=== PATIENT | male | born 2000 | race Caucasian/White ===

== ENCOUNTER 2022-02-22 21:05 | Emergency (ER) | payer OTHER, SELFPAY ==
[2022-02-22 21:22] VITALS: BP 141/97; PULSE 98; RESP 16; TEMP 37.2; O2SAT 100; BMI 19.1
--- NOTE | 2022-02-22 21:55 | ED_ITS ---
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 Patient states he has had increased anxiety, becoming less sociable over the last few months, says he has been seen for IBS last summer, did get bullied in middle school and high school he feels this has been contributing. Patient denies any suicidal homicidal ideations, he self medicates with THC. Patient did this prior to coming to the emergency department, he denies any alcohol or any other illicit drug use. He is also concerned about HIV, he has 1 sexual partner with his girlfriend from school she has an IUD, patient denies any other contact. Denies any fevers, chills myalgias arthralgias. Denies any chest pain or shortness of breath, denies any diarrhea or abdominal pain. There is some depression in the family with his sister, mother has anxiety. He has not had any auditory visual hallucinations. He says he has friends at school and is doing well. Not currently on any medications, he has no therapist. Due to these multiple concerns he presents emergency department. <Jeff Pratt MD - Last Filed: 03/01/22 13:55> Related Data Home medications: Home Medications Medication Instructions Recorded Confirmed No Known Home Medications 02/22/22 02/22/22 <Jeff Pratt MD - Last Filed: 03/01/22 13:55> Allergies/adverse reactions: Allergies Allergy/AdvReac Type Severity Reaction Status Date / Time azithromycin Allergy Mild arm swollen Verified 02/22/22 21:32 <Jeff Pratt MD - Last Filed: 03/01/22 13:55> Review of Systems Status of ROS: Reports: 10 or more systems reviewed and unremarkable except as noted in History and below <Jeff Pratt MD - Last Filed: 03/01/22 13:55> [facility] Social History: Social History Smoking Status: Never smoker Do you use any of these nicotine containing products: None Second hand tobacco smoke exposure: No How often do you have a drink containing alcohol: never AUDIT-C Alcohol total score: 0 Non-prescribed substance use: marijuana (any form) <Jeff Pratt MD - Last Filed: 03/01/22 13:55> Exam Narrative: Exam Narrative: General: No obvious distress sitting comfortably, nontoxic in appearance HEENT: Tympanic membranes within normal limits bilateral oropharynx is clear and moist, pupils equal round reactive to light, extraocular muscles intact Neck: Supple full range of motion : Lungs clear to auscultation bilaterally Heart: Normal sinus rhythm S1-S2 Abdomen: Soft nontender, bowel sounds present Muscle skeletal: +5 strength upper lower extremities Neuro: Alert awake and oriented x3 Psych: No psychosis, mood and affect normal <Jeff Pratt MD - Last Filed: 03/01/22 13:55> Const: Vital Signs, click to edit/add: Vital Signs - 24 hr 02/22/22 21:22 Temperature 98.9 F Pulse Rate [Left P ulse Oximeter] 98 Respiratory Rate 16 Blood Pressure [Ri ght Upper Arm] 141/97 H Pulse Oximetry 100 Oxygen Delivery Me thod Room Air <Jeff Pratt MD - Last Filed: 03/01/22 13:55> Vital Signs, click to edit/add: Vital Signs - 24 hr 02/22/22 21:22 Temperature 98.9 F Pulse Rate [Left P ulse Oximeter] 98 Respiratory Rate 16 Blood Pressure [Ri ght Upper Arm] 141/97 H Pulse Oximetry 100 Oxygen Delivery Me thod Room Air <Nano Garner MD - Last Filed: 02/23/22 01:05> Course Course Hospital Course: 10:00 PM: AIDET performed.Vitals are stable. Workup will include behavioral health labs including CBC, serum EtOH, urine drug screen, urinalysis, CMP, TSH and telehealth consult. Patient is not currently suicidal or psychotic. Differential diagnosis include mental illness in the form of schizophrenia, bipolar disorder, metabolic derangements such as hypoglycemia or hypo or hypernatremia, FEATHER MIXER disorder such as infections, drug use illicit or prescription, thyrotoxicosis, hepatic failure as well as all etiologies. <Jeff Pratt MD - Last Filed: 03/01/22 13:55> Reevaluation(s) Reevaluation #1: Patient and mother were updated on his lab results, urinalysis and urine drug screen were within normal limits, CBC showed no abnormalities, TSH normal, metabolic panel within normal limits. Serum ETOH level negative, HIV 1/2 negative, he is to meet with [facility] at this time. Likely discharge home with outpatient follow up. <Jeff Pratt MD - Last Filed: 03/01/22 13:55> Time: 23:32 <Jeff Pratt MD - Last Filed: 03/01/22 13:55> Vital Signs Vital signs: Initial Vital Signs Temperature 98.9 F 02/22/22 21: Temperature Source Temporal Artery Scan 02/22/22 21: Pulse Rate 98 02/22/22 21:22 Respiratory Rate 16 02/22/22 21:22 Blood Pressure 141/97 H 02/22/22 21:22 Blood Pressure Mean 111 02/22/22 21:22 Blood Pressure Position Supine 02/22/22 21:22 Pulse Oximetry 100 02/22/22 21:22 Oxygen Delivery Method 02/22/22 21:22 Vital Signs Temperature 98.9 F 02/22/22 21:22 Pulse Rate 98 02/22/22 21:22 Respiratory Rate 16 02/22/22 21:22 Blood Pressure 141/97 H 02/22/22 21:22 Pulse Oximetry 100 02/22/22 21:22 Oxygen Delivery Method 02/22/22 21:22 Temperature 98.9 F 02/22/22 21:22 Pulse Rate 98 02/22/22 21:22 Respiratory Rate 16 02/22/22 21:22 Blood Pressure 141/97 H 02/22/22 21:22 Pulse Oximetry 100 02/22/22 21:22 Oxygen Delivery Method 02/22/22 21:22 <Jeff Pratt MD - Last Filed: 03/01/22 13:55> Initial Vital Signs Temperature 98.9 F 02/22/22 21:22 Temperature Source Temporal Artery Scan 02/22/22 21:22 Pulse Rate 98 02/22/22 21:22 Respiratory Rate 16 02/22/22 21:22 Blood Pressure 141/97 H 02/22/22 21:22 Blood Pressure Mean 111 02/22/22 21:22 Blood Pressure Position Supine 02/22/22 21:22 Pulse Oximetry 100 02/22/22 21:22 Oxygen Delivery Method 02/22/22 21:22 Vital Signs Temperature 98.9 F 02/22/22 21:22 Pulse Rate 98 02/22/22 21:22 Respiratory Rate 16 02/22/22 21:22 Blood Pressure 141/97 H 02/22/22 21:22 Pulse Oximetry 100 02/22/22 21:22 Oxygen Delivery Method 02/22/22 21:22 Temperature 98.9 F 02/22/22 21:22 Pulse Rate 98 02/22/22 21:22 Respiratory Rate 16 02/22/22 21:22 Blood Pressure 141/97 H 02/22/22 21:22 Pulse Oximetry 100 02/22/22 21:22 Oxygen Delivery Method 02/22/22 21:22 <Nano Garner MD - Last Filed: 02/23/22 01:05> Medical Decision Making MDM Narrative Medical decision making narrative: I have reviewed the dec assessment. I reviewed labs and discussed the findings with the patient. Discharge is recommended, with planned outpatient follow-up. Patient attends [employer] but also happens to live locally. They have a family doctor who taken follow up with. His father is present today. All questions answered. No additional concerns at this time. <Nano Garner MD - Last Filed: 02/23/22 01:05> Lab Data Labs: Lab Results 02/22/22 02/22/22 02/22/22 Range/Units 22:13 22:13 22:20 WBC 5.32 (4.50-11.00) K/uL RBC 4.89 (4.30-5.90) m/uL Hgb 15.3 (13.5-17.5) gm/dL Hct 42.9 (37.0-53.0) % MCV 88 (80-100) fL MCH 31 (26-34) pg MCHC 36 (32-36) gm/dL RDW Coeff of Obed 11.4 L (11.5-15.5) % Plt Count 220 (140-440) K/uL Neut % (Auto) 61.5 (42.0-72.0) % Lymph % (Auto) 28.6 (20-44) % [place] % (Auto) 8.3 (0.0-11.0) % Eos % (Auto) 0.4 (0.0-7.0) % Baso % (Auto) 0.6 (0.0-3.0) % Neut # (Auto) 3.28 (1.7-7.0) K/uL Lymph # (Auto) 1.52 (0.90-2.90) K/uL [place] # (Auto) 0.40 (0.00-0.90) K/UL Eos # (Auto) 0.02 (0.00-0.50) K/uL Baso # (Auto) 0.03 (0.00-0.30) K/uL Abs Immat Gran (auto) 0.03 (0.00-0.30) K/uL Sodium (135-149) mmol/L Potassium (3.6-5.1) mmol/L Chloride (96-114) mmol/L Carbon Dioxide (20-32) mmol/L BUN (5-24) mg/dL Creatinine (0.5-1.5) mg/dL Estimated Creat Clear Estimated GFR ml/min Glucose (60-115) mg/dL Calcium (8.4-10.6) mg/dL Total Bilirubin (0.1-1.5) mg/dL AST (12-35) U/L ALT (4-50) U/L Alkaline Phosphatase (40-150) U/L Total Protein (6.0-8.3) g/dL Albumin (3.3-5.0) g/dL TSH (0.270-4.20) uIU/mL Urine Color Yellow (Yellow) Urine Appearance Clear (Clear) Urine pH 7.0 (5.0-8.5) Ur Specific [place] 1.010 (1.000-1.030) Urine Protein Negative (Negative) Urine Glucose (UA) Negative (Negative) Urine Ketones Negative (Negative) Urine Blood Negative (Negative) Urine Nitrite Negative (Negative) Urine Bilirubin Negative (Negative) Urine Urobilinogen 0.2 (0.2-1.0) Ur Leukocyte Esterase Negative (Negative) Urine Opiates Screen Negative (Negative) Ur Oxycodone Screen Negative (Negative) Urine Methadone Screen Negative (Negative) Ur Propoxyphene Screen Negative (Negative) Ur Barbiturates Screen Negative (Negative) U Tricyclic Antidepress Negative (Negative) Ur Phencyclidine Scrn Negative (Negative) Ur Amphetamines Screen Negative (Negative) U Methamphetamines Scrn Negative (Negative) U Benzodiazepines Scrn Negative (Negative) Urine Cocaine Screen Negative (Negative) U Marijuana (THC) Screen Negative (Negative) Ur Drug Screen Comment See Note Ethyl Alcohol (0.01-0.03) % HIV 1&2 Ab/P24 Ag 4thGn (Negative) 02/22/22 02/22/22 02/22/22 Range/Units 22:20 22:20 22:20 WBC (4.50-11.00) K/uL RBC (4.30-5.90) m/uL Hgb (13.5-17.5) gm/dL Hct (37.0-53.0) % MCV (80-100) fL MCH (26-34) pg MCHC (32-36) gm/dL RDW Coeff of Obed (11.5-15.5) % Plt Count (140-440) K/uL Neut % (Auto) (42.0-72.0) % Lymph % (Auto) (20-44) % Mel[place] % (Auto) (0.0-11.0) % Eos % (Auto) (0.0-7.0) % Baso % (Auto) (0.0-3.0) % Neut # (Auto) (1.7-7.0) K/uL Lymph # (Auto) (0.90-2.90) K/uL [place] # (Auto) (0.00-0.90) K/UL Eos # (Auto) (0.00-0.50) K/uL Baso # (Auto) (0.00-0.30) K/uL Abs Immat Gran (auto) (0.00-0.30) K/uL Sodium 139 (135-149) mmol/L Potassium 3.4 L (3.6-5.1) mmol/L Chloride 100 (96-114) mmol/L Carbon Dioxide 24 (20-32) mmol/L BUN 14 (5-24) mg/dL Creatinine 0.8 (0.5-1.5) mg/dL Estimated Creat Clear 108.67 Estimated GFR 130 ml/min Glucose 143 H (60-115) mg/dL Calcium 10.1 (8.4-10.6) mg/dL Total Bilirubin 2.0 H (0.1-1.5) mg/dL AST 29 (12-35) U/L ALT 14 (4-50) U/L Alkaline Phosphatase 86 (40-150) U/L Total Protein 9.1 H (6.0-8.3) g/dL Albumin 5.6 H (3.3-5.0) g/dL TSH 2.550 (0.270-4.20) uIU/mL Urine Color (Yellow) Urine Appearance (Clear) Urine pH (5.0-8.5) Ur Specific [place] (1.000-1.030) Urine Protein (Negative) Urine Glucose (UA) (Negative) Urine Ketones (Negative) Urine Blood (Negative) Urine Nitrite (Negative) Urine Bilirubin (Negative) Urine Urobilinogen (0.2-1.0) Ur Leukocyte Esterase (Negative) Urine Opiates Screen (Negative) Ur Oxycodone Screen (Negative) Urine Methadone Screen (Negative) Ur Propoxyphene Screen (Negative) Ur Barbiturates Screen (Negative) U Tricyclic Antidepress (Negative) Ur Phencyclidine Scrn (Negative) Ur Amphetamines Screen (Negative) U Methamphetamines Scrn (Negative) U Benzodiazepines Scrn (Negative) Urine Cocaine Screen (Negative) U Marijuana (THC) Screen (Negative) Ur Drug Screen Comment Ethyl Alcohol < 0.01 L (0.01-0.03) % HIV 1&2 Ab/P24 Ag 4thGn (Negative) 02/22/22 Range/Units 22:20 WBC (4.50-11.00) K/uL RBC (4.30-5.90) m/uL Hgb (13.5-17.5) gm/dL Hct (37.0-53.0) % MCV (80-100) fL MCH (26-34) pg MCHC (32-36) gm/dL RDW Coeff of Obed (11.5-15.5) % Plt Count (140-440) K/uL Neut % (Auto) (42.0-72.0) % Lymph % (Auto) (20-44) % Mel[place] % (Auto) (0.0-11.0) % Eos % (Auto) (0.0-7.0) % Baso % (Auto) (0.0-3.0) % Neut # (Auto) (1.7-7.0) K/uL Lymph # (Auto) (0.90-2.90) K/uL [place] # (Auto) (0.00-0.90) K/UL Eos # (Auto) (0.00-0.50) K/uL Baso # (Auto) (0.00-0.30) K/uL Abs Immat Gran (auto) (0.00-0.30) K/uL Sodium (135-149) mmol/L Potassium (3.6-5.1) mmol/L Chloride (96-114) mmol/L Carbon Dioxide (20-32) mmol/L BUN (5-24) mg/dL Creatinine (0.5-1.5) mg/dL Estimated Creat Clear Estimated GFR ml/min Glucose (60-115) mg/dL Calcium (8.4-10.6) mg/dL Total Bilirubin (0.1-1.5) mg/dL AST (12-35) U/L ALT (4-50) U/L Alkaline Phosphatase (40-150) U/L Total Protein (6.0-8.3) g/dL Albumin (3.3-5.0) g/dL TSH (0.270-4.20) uIU/mL Urine Color (Yellow) Urine Appearance (Clear) Urine pH (5.0-8.5) Ur Specific [place] (1.000-1.030) Urine Protein (Negative) Urine Glucose (UA) (Negative) Urine Ketones (Negative) Urine Blood (Negative) Urine Nitrite (Negative) Urine Bilirubin (Negative) Urine Urobilinogen (0.2-1.0) Ur Leukocyte Esterase (Negative) Urine Opiates Screen (Negative) Ur Oxycodone Screen (Negative) Urine Methadone Screen (Negative) Ur Propoxyphene Screen (Negative) Ur Barbiturates Screen (Negative) U Tricyclic Antidepress (Negative) Ur Phencyclidine Scrn (Negative) Ur Amphetamines Screen (Negative) U Methamphetamines Scrn (Negative) U Benzodiazepines Scrn (Negative) Urine Cocaine Screen (Negative) U Marijuana (THC) Screen (Negative) Ur Drug Screen Comment Ethyl Alcohol (0.01-0.03) % HIV 1&2 Ab/P24 Ag 4thGn Negative (Negative) <Jeff Pratt MD - Last Filed: 03/01/22 13:55> Lab Results 02/22/22 02/22/22 02/22/22 Range/Units 22:13 22:13 22:20 WBC 5.32 (4.50-11.00) K/uL RBC 4.89 (4.30-5.90) m/uL Hgb 15.3 (13.5-17.5) gm/dL Hct 42.9 (37.0-53.0) % MCV 88 (80-100) fL MCH 31 (26-34) pg MCHC 36 (32-36) gm/dL RDW Coeff of Obed 11.4 L (11.5-15.5) % Plt Count 220 (140-440) K/uL Neut % (Auto) 61.5 (42.0-72.0) % Lymph % (Auto) 28.6 (20-44) % [place] % (Auto) 8.3 (0.0-11.0) % Eos % (Auto) 0.4 (0.0-7.0) % Baso % (Auto) 0.6 (0.0-3.0) % Neut # (Auto) 3.28 (1.7-7.0) K/uL Lymph # (Auto) 1.52 (0.90-2.90) K/uL [place] # (Auto) 0.40 (0.00-0.90) K/UL Eos # (Auto) 0.02 (0.00-0.50) K/uL Baso # (Auto) 0.03 (0.00-0.30) K/uL Abs Immat Gran (auto) 0.03 (0.00-0.30) K/uL Sodium (135-149) mmol/L Potassium (3.6-5.1) mmol/L Chloride (96-114) mmol/L Carbon Dioxide (20-32) mmol/L BUN (5-24) mg/dL Creatinine (0.5-1.5) mg/dL Estimated Creat Clear Estimated GFR ml/min Glucose (60-115) mg/dL Calcium (8.4-10.6) mg/dL Total Bilirubin (0.1-1.5) mg/dL AST (12-35) U/L ALT (4-50) U/L Alkaline Phosphatase (40-150) U/L Total Protein (6.0-8.3) g/dL Albumin (3.3-5.0) g/dL TSH (0.270-4.20) uIU/mL Urine Color Yellow (Yellow) Urine Appearance Clear (Clear) Urine pH 7.0 (5.0-8.5) Ur Specific [place] 1.010 (1.000-1.030) Urine Protein Negative (Negative) Urine Glucose (UA) Negative (Negative) Urine Ketones Negative (Negative) Urine Blood Negative (Negative) Urine Nitrite Negative (Negative) Urine Bilirubin Negative (Negative) Urine Urobilinogen 0.2 (0.2-1.0) Ur Leukocyte Esterase Negative (Negative) Urine Opiates Screen Negative (Negative) Ur Oxycodone Screen Negative (Negative) Urine Methadone Screen Negative (Negative) Ur Propoxyphene Screen Negative (Negative) Ur Barbiturates Screen Negative (Negative) U Tricyclic Antidepress Negative (Negative) Ur Phencyclidine Scrn Negative (Negative) Ur Amphetamines Screen Negative (Negative) U Methamphetamines Scrn Negative (Negative) U Benzodiazepines Scrn Negative (Negative) Urine Cocaine Screen Negative (Negative) U Marijuana (THC) Screen Negative (Negative) Ur Drug Screen Comment See Note Ethyl Alcohol (0.01-0.03) % HIV 1&2 Ab/P24 Ag 4thGn (Negative) 02/22/22 02/22/22 02/22/22 Range/Units 22:20 22:20 22:20 WBC (4.50-11.00) K/uL RBC (4.30-5.90) m/uL Hgb (13.5-17.5) gm/dL Hct (37.0-53.0) % MCV (80-100) fL MCH (26-34) pg MCHC (32-36) gm/dL RDW Coeff of Obed (11.5-15.5) % Plt Count (140-440) K/uL Neut % (Auto) (42.0-72.0) % Lymph % (Auto) (20-44) % [place] % (Auto) (0.0-11.0) % Eos % (Auto) (0.0-7.0) % Baso % (Auto) (0.0-3.0) % Neut # (Auto) (1.7-7.0) K/uL Lymph # (Auto) (0.90-2.90) K/uL [place] # (Auto) (0.00-0.90) K/UL Eos # (Auto) (0.00-0.50) K/uL Baso # (Auto) (0.00-0.30) K/uL Abs Immat Gran (auto) (0.00-0.30) K/uL Sodium 139 (135-149) mmol/L Potassium 3.4 L (3.6-5.1) mmol/L Chloride 100 (96-114) mmol/L Carbon Dioxide 24 (20-32) mmol/L BUN 14 (5-24) mg/dL Creatinine 0.8 (0.5-1.5) mg/dL Estimated Creat Clear 108.67 Estimated GFR 130 ml/min Glucose 143 H (60-115) mg/dL Calcium 10.1 (8.4-10.6) mg/dL Total Bilirubin 2.0 H (0.1-1.5) mg/dL AST 29 (12-35) U/L ALT 14 (4-50) U/L Alkaline Phosphatase 86 (40-150) U/L Total Protein 9.1 H (6.0-8.3) g/dL Albumin 5.6 H (3.3-5.0) g/dL TSH 2.550 (0.270-4.20) uIU/mL Urine Color (Yellow) Urine Appearance (Clear) Urine pH (5.0-8.5) Ur Specific [place] (1.000-1.030) Urine Protein (Negative) Urine Glucose (UA) (Negative) Urine Ketones (Negative) Urine Blood (Negative) Urine Nitrite (Negative) Urine Bilirubin (Negative) Urine Urobilinogen (0.2-1.0) Ur Leukocyte Esterase (Negative) Urine Opiates Screen (Negative) Ur Oxycodone Screen (Negative) Urine Methadone Screen (Negative) Ur Propoxyphene Screen (Negative) Ur Barbiturates Screen (Negative) U Tricyclic Antidepress (Negative) Ur Phencyclidine Scrn (Negative) Ur Amphetamines Screen (Negative) U Methamphetamines Scrn (Negative) U Benzodiazepines Scrn (Negative) Urine Cocaine Screen (Negative) U Marijuana (THC) Screen (Negative) Ur Drug Screen Comment Ethyl Alcohol < 0.01 L (0.01-0.03) % HIV 1&2 Ab/P24 Ag 4thGn (Negative) 02/22/22 Range/Units 22:20 WBC (4.50-11.00) K/uL RBC (4.30-5.90) m/uL Hgb (13.5-17.5) gm/dL Hct (37.0-53.0) % MCV (80-100) fL MCH (26-34) pg MCHC (32-36) gm/dL RDW Coeff of Obed (11.5-15.5) % Plt Count (140-440) K/uL Neut % (Auto) (42.0-72.0) % Lymph % (Auto) (20-44) % [place] % (Auto) (0.0-11.0) % Eos % (Auto) (0.0-7.0) % Baso % (Auto) (0.0-3.0) % Neut # (Auto) (1.7-7.0) K/uL Lymph # (Auto) (0.90-2.90) K/uL [place] # (Auto) (0.00-0.90) K/UL Eos # (Auto) (0.00-0.50) K/uL Baso # (Auto) (0.00-0.30) K/uL Abs Immat Gran (auto) (0.00-0.30) K/uL Sodium (135-149) mmol/L Potassium (3.6-5.1) mmol/L Chloride (96-114) mmol/L Carbon Dioxide (20-32) mmol/L BUN (5-24) mg/dL Creatinine (0.5-1.5) mg/dL Estimated Creat Clear Estimated GFR ml/min Glucose (60-115) mg/dL Calcium (8.4-10.6) mg/dL Total Bilirubin (0.1-1.5) mg/dL AST (12-35) U/L ALT (4-50) U/L Alkaline Phosphatase (40-150) U/L Total Protein (6.0-8.3) g/dL Albumin (3.3-5.0) g/dL TSH (0.270-4.20) uIU/mL Urine Color (Yellow) Urine Appearance (Clear) Urine pH (5.0-8.5) Ur Specific [place] (1.000-1.030) Urine Protein (Negative) Urine Glucose (UA) (Negative) Urine Ketones (Negative) Urine Blood (Negative) Urine Nitrite (Negative) Urine Bilirubin (Negative) Urine Urobilinogen (0.2-1.0) Ur Leukocyte Esterase (Negative) Urine Opiates Screen (Negative) Ur Oxycodone Screen (Negative) Urine Methadone Screen (Negative) Ur Propoxyphene Screen (Negative) Ur Barbiturates Screen (Negative) U Tricyclic Antidepress (Negative) Ur Phencyclidine Scrn (Negative) Ur Amphetamines Screen (Negative) U Methamphetamines Scrn (Negative) U Benzodiazepines Scrn (Negative) Urine Cocaine Screen (Negative) U Marijuana (THC) Screen (Negative) Ur Drug Screen Comment Ethyl Alcohol (0.01-0.03) % HIV 1&2 Ab/P24 Ag 4thGn Negative (Negative) <Nano Garner MD - Last Filed: 02/23/22 01:05> Discharge Plan Discharge Clinical Impression: Behavior concern, Acute anxiety <Jeff Pratt MD - Last Filed: 03/01/22 13:55> Patient Disposition: Home, Self-Care <Jeff Pratt MD - Last Filed: 03/01/22 13:55> Condition: Improved <Jeff Pratt MD - Last Filed: 03/01/22 13:55> Instructions: Anxiety (ED) <Jeff Pratt MD - Last Filed: 03/01/22 13:55> Additional Instructions: Please schedule follow-up appointment with your primary care doctor as soon as possible. I do not recommend continued use of marijuana. Your blood work was reassuring today. Keep the follow-up appointments for a new therapist, potentially medication to help treat your anxiety which will you would discuss further with your primary care provider. Additional referrals may be needed. Come back to the emergency department if you are having a significant increase in suicidal thoughts. <Jeff Pratt MD - Last Filed: 03/01/22 13:55> Activity Level: No Restrictions <Jeff Pratt MD - Last Filed: 03/01/22 13:55> No Restrictions <Nano Garner MD - Last Filed: 02/23/22 01:05> Discharge Diet: Regular <Jeff Pratt MD - Last Filed: 03/01/22 13:55> Regular <Nano Garner MD - Last Filed: 02/23/22 01:05> Prescriptions: No Action No Known Home Medications <Jeff Pratt MD - Last Filed: 03/01/22 13:55> Follow Up/Referrals: Casey James, [Primary Care Provider] - <Jeff Pratt MD - Last Filed: 03/01/22 13:55> Stand Alone Forms: [employer] Info Instructions <Jeff Pratt MD - Last Filed: 03/01/22 13:55>
[2022-02-22 22:28] LABS: Appearance Urine Clear (Clear); Bilirubin Urine Negative (Negative); Blood Urine Negative (Negative); Color Urine Yellow (Yellow); Glucose Urine Negative (Negative); Ketones Urine Negative (Negative); Leukocyte Esterase Urine Negative (Negative); Nitrite Urine Negative (Negative); Protein Urine Negative (Negative); Urobilinogen Urine 0.2 (0.2-1.0)
[2022-02-22 22:33] LABS: Basophils Absolute Auto 0.03 K/uL (0.00-0.30); Basophils Percent Auto 0.6 % (0.0-3.0); Eosinophils Absolute Auto 0.02 K/uL (0.00-0.50); Eosinophils Percent Auto 0.4 % (0.0-7.0); Hematocrit 42.9 % (37.0-53.0); Hemoglobin* 15.3 gm/dL (13.5-17.5); Immature Granulocytes Abs Auto 0.03 K/uL (0.00-0.30); Lymphocytes Absolute Auto 1.52 K/uL (0.90-2.90); Lymphocytes Percent Auto 28.6 % (20-44); Mean Corpuscular HGB Conc 36 gm/dL (32-36); Mean Corpuscular Hemoglobin 31 pg (26-34); Mean Corpuscular Volume 88 fL (80-100); Monocytes Percent Auto 8.3 % (0.0-11.0); Neutrophils Absolute Auto 3.28 K/uL (1.7-7.0); Neutrophils Percent Auto 61.5 % (42.0-72.0); Platelet Count* 220 K/uL (140-440); RDW Coefficient of Variation % 11.4 % (11.5-15.5); Red Blood Count 4.89 m/uL (4.30-5.90); White Blood Count* 5.32 K/uL (4.50-11.00)
[2022-02-22 22:34] LABS: Amphetamine Screen Urine Negative (Negative); Barbiturate Screen Urine Negative (Negative); Benzodiazepines Screen Urine Negative (Negative); Cannabinoid Screen Urine Negative (Negative); Cocaine Screen Urine Negative (Negative); Methadone Screen Urine Negative (Negative); Methamphetamines Screen Urine Negative (Negative); Opiate Screen Urine Negative (Negative); Oxycodone Screen Urine Negative (Negative); Phencyclidine Screen Urine Negative (Negative); Tricyclic Antidepressant Urine Negative (Negative)
[2022-02-22 22:46] LABS: Slide Review Reflex No
[2022-02-22 22:47] LABS: Albumin* 5.6 g/dL (3.3-5.0); Chloride* 100 mmol/L (96-114)
[2022-02-22 22:48] LABS: Potassium* 3.4 mmol/L (3.6-5.1); Sodium* 139 mmol/L (135-149)
[2022-02-22 22:50] LABS: Alkaline Phosphatase* 86 U/L (40-150); Aspartate Amino Transferase* 29 U/L (12-35); Blood Urea Nitrogen* 14 mg/dL (5-24); Carbon Dioxide* 24 mmol/L (20-32); Creatinine* 0.8 mg/dL (0.5-1.5); Est. Creatinine Clearance* 108.67; Estimated Glomerular Filt Rate 130 ml/min; Total Protein* 9.1 g/dL (6.0-8.3)
[2022-02-22 22:51] LABS: Alanine Aminotransferase* 14 U/L (4-50); Calcium* 10.1 mg/dL (8.4-10.6); Ethanol* < 0.01 % (0.01-0.03); Glucose* 143 mg/dL (60-115)
[2022-02-22 23:48] LABS: HIV 1/2/P24 Combo Screen* Negative (Negative)
== END 2022-02-23 01:13 | disposition home or self-care (01) ==
PROVIDERS: Student in an Organized Health Care Education/Training Program; Emergency Provider Family Medicine; PCP Family Medicine
DX: F41.9 Anxiety disorder, unspecified (principal)
CPT/HCPCS: 36415; 80053; 80306; 81003; 82077; 84443; 85025; 86701; 86702; 86703; 99283; 99284